=== PATIENT | female | born 1990 | race Caucasian/White ===

== ENCOUNTER 2022-01-16 17:55 | Emergency (ER) | payer OTHER, BC ==
[2022-01-16] MEDS ORDERED: Boostrix 0.5 ML (Tdap) VIAL ONE (18:42)
[2022-01-16] MEDS ORDERED: Fentanyl 100 MCG/2 ML VIAL ONE (19:06)
[2022-01-16] MEDS ORDERED: Ketorolac Tromethamine 30 MG/ML VIAL ONE (19:07)
[2022-01-16] MEDS ORDERED: Ondansetron PF 4 MG/2 ML Vial ONE (19:07)
== END 2022-01-16 19:55 | disposition home or self-care (01) ==
LOC: CSHERS 17:55
DX: S60.221A Contusion of right hand, initial encounter (principal); S30.810A Abrasion of lower back and pelvis, initial encounter; M25.572 Pain in left ankle and joints of left foot; M25.512 Pain in left shoulder; M25.561 Pain in right knee; F17.200 Nicotine dependence, unspecified, uncomplicated; Z23 Encounter for immunization; V49.9XXA Car occupant (driver) (passenger) injured in unspecified traffic accident, initial encounter
CPT/HCPCS: 70450; 71045; 72125; 90471; 90715; 96374; 96375; J1885; J2405; J3010